=== PATIENT | female | born 1990 | race Caucasian/White ===

== ENCOUNTER 2016-09-19 09:53 | Inpatient (IN) ==
[2016-09-19] MEDS ORDERED: Ringers Solution, Lactated 1,000 ML ONE ×3 (10:22→13:46)
[2016-09-19] MEDS ORDERED: CeFAZolin Pre 3,000 MG/100 ML 3,000 MG/100 ML BAG IVPB ONE (10:24)
[2016-09-19] MEDS ORDERED: Metoclopramide 10 MG/2 ML VIAL IVP ONE (10:24)
[2016-09-19] MEDS ORDERED: Famotidine 20 MG/2 ML VIAL IVP ONE (10:24)
[2016-09-19] MEDS ORDERED: Ringers Solution, Lactated 1,000 ML IVC SCH ×2 (10:30→15:59)
--- NOTE | 2016-09-19 10:38 | Anesthesia Evaluation PreOp ---
Date of Encounter: 09/19/16 Time of Encounter: 10:36 - Past History Planned Operation: repeat csection Cardiac History: Denies any Significant Hx Pulmonary History: Denies Any Significant HX APPRAISER ART History: Seizures (febrile seizures as toddler) Other Medical History: Denies Any Significant HX Anesthesia History: No Prior Anesthetic Complications, Past Anesthesia ( previous csection, knee scope) : Yes (39 weeks, ) Alcohol Use: none Drug use: none Medications and Allergies Dicyclomine [Bentyl] 20 mg PO QID #20 capsule 05/11/16 [Rx] Ondansetron ODT [Zofran ODT] 4 mg SL Q6HR #12 tab.rapdis 05/11/16 [Rx] Allergies latex Allergy (Verified 04/11/16 17:36) Rash - Meds/Allergy Pre-op Review Medications Reviewed: Yes Allergies Reviewed: Yes Beta Blockers on Current Med List: No Anesthesia Exam bp 126/72 hr 87 spo2 98 Height: 70 Weight: 137 kg NPO (# of Hours): greater than 8 hours - HEENT Pupil (Motor): Pupils equal Mallampati: II Teeth: Normal Oral Opening: Greater than 3 - APPRAISER ART LOC: Oriented APPRAISER ART Motor: Normal RUE, Normal LUE, Normal RLE, Normal LLE, Normal Face APPRAISER ART Sensory: Normal: RUE, LUE, RLE, LLE, Face - Cardiac Rhythm: Regular Murmur: None JVD: No Carotid Bruit: No - Pulmonary Breath Sounds: bilateral Clear Respiratory Effort: Symmetrical Anesthesia Assess/Plan ASA Score: 2 Modified [place] Scale for Level of Consciousness: Cooperative, oriented, and tranquil Anesthetic Plan: Regional Monitoring Plan: Standard Monitors Recovery Plan: PACU
[2016-09-19 10:40] LABS: Basophils % 0.1 %; Eosinophils # 0.1 K/mcL (0.0-0.6); Hematocrit 36.1 % (35.3-44.9); Hemoglobin 11.9 g/dL (11.5-15.4); Immature Granulocytes % 0.6 % (0-4); Lymphocytes # 1.9 K/mcL (0.6-4.6); Lymphocytes % 16.9 %; Mean Corpuscular Hemoglobin 28.7 pg (28.0-33.3); Mean Corpuscular Volume 87.2 fL (83.0-100.0); Mean Platelet Volume 10.8 fL (9.4-12.4); Monocytes # 0.7 K/mcL (0.0-1.3); Monocytes % 5.7 %; Neutrophils # 8.7 K/mcL (1.6-8.9); Platelet Count 261 K/mcL (140-400); Red Blood Count 4.14 M/mcL (3.82-4.97); Red Cell Distribution Width 13.6 % (11.5-14.5); Segmented Neutrophils % 75.7 %
[2016-09-19] MEDS: Ringers Solution, Lactated 1,000 ML IVC ONE ×2 (10:53→11:17)
--- NOTE | 2016-09-19 11:17 | OB/GYN History & Physical ---
Date of Encounter: 09/19/16 Time of Encounter: 11:13 Assessment and Plan (1) Previous delivery affecting Current visit: Yes Status: Acute Admit for scheduled repeat delivery with tubal ligation. Ancef for ppx. Rubella vaccine . (2) 39 weeks gestation of Current visit: Yes Status: Acute (3) Obesity Current visit: Yes Status: Acute Qualifiers: Obesity type: due to excess calories Obesity severity: unspecified obesity severity Qualified Code(s): E66.09 - Other obesity due to excess calories (4) Rubella non-immune status, antepartum Current visit: Yes Status: Acute Vaccine (5) Late care Current visit: Yes Status: Acute (6) Positive GBS test Current visit: Yes Status: Acute (7) History of delivery, currently in third trimester Current visit: Yes Status: Acute History of Present Illness Chief complaint: repeat delivery HPI: Ms. Edward is a 26 year old female presenting at 39w2d for scheduled repeat delivery. This has been complicated by late care, previous , and delivery at 34 weeks. Today she reports feeling well without complaints. Good FM. Blood type A positive. Serologies negative. Rubella non-immune. GBS positive. Past Med Surg Social Fam HX - Past Medical History Medical history: no medical history Psychiatric history: no psych history - Past Surgical History Surgical History: - Social History Smoking Status: Never smoker Smokeless Tobacco Status: No Alcohol use: none Drug use: none - Family History Mother Name: dennis napier Age: 45 Family Member Ethnicity: Non- Living Status: Still Living Hx Family Cardiac Disorders: No Hx Family Respiratory Disorders: Yes (asthma) Hx Family Cancer: No Hx Family GI Disorders: No Hx Family Genitourinary Disorders: No Hx Family Endocrine Disorder: No Hx Family Musculoskeletal Disorders: No Hx Family Neuromuscular Disorders: No Hx Family Neurologic Disorders: No Hx Family HEENT Disorders: No Hx Family Autoimmune Disorders: No Hx Family Reproductive Disorders: No Hx Family Psychosocial Disorders: No Hx Family Medical Disorders: No Obstetrical History - Pregnancies : 2 Para: 1 Term: 0 : 1 Ab's: 0 Livin Medications and Allergies Dicyclomine [Bentyl] 20 mg PO QID #20 capsule 05/11/16 [Rx] Ondansetron ODT [Zofran ODT] 4 mg SL Q6HR #12 tab.rapdis 05/11/16 [Rx] Allergies latex Allergy (Verified 04/11/16 17:36) Rash Review of System OB All systems PM: reviewed and no additional remarkable complaints except as stated Exam - Constitutional Constitutional: well developed, well nourished, no acute distress - HEENT HEENT: Mucus Membranes Moist - Lungs Respiratory exam: CTAB - Cardiovascular Cardiovascular exam: RRR, +S1, +S2 - Abdomen Abdomen: Present: gravid, non tender - Extremities Extremities exam: pedal edema (mild edema bilaterally) - Vulva Vulva: bilateral: normal - Vagina Vagina: Present: normal moisture - Uterus Uterus exam: Present: normal size. Absent: tender - Anus/Rectum Anus/Rectum: Present: normal perianal skin Results Result Diagrams: 09/19/16 10:20 Abnormal lab results WBC 11.5 K/mcL (4.3-11.1) H 09/19/16 10:20 All other labs normal. - VTE Reasons for not Prescribing Prophylaxis: Treatment not Indicated - Low risk for VTE
[2016-09-19] MEDS ORDERED: *HR* Morphine Sulfate/PF 5 MG/10 ML AMPUL ONE (11:36)
[2016-09-19] MEDS ORDERED: *HR* FentaNYL (PF) 100 MCG/2 ML VIAL ONE (11:36)
[2016-09-19] MEDS ORDERED: *HR* Phenylephrine 10 MG/ML VIAL ONE (11:38)
[2016-09-19] MEDS ORDERED: *HR* Oxytocin 10 UNIT/ML VIAL IM ONE (11:38)
[2016-09-19] MEDS ORDERED: Ondansetron 4 MG/2 ML VIAL IVP ONE (12:17)
[2016-09-19] MEDS ORDERED: *HR* Promethazine 25 MG/ML VIAL IVP PRN (12:17)
[2016-09-19] MEDS ORDERED: *HR* HYDROmorphone (PF) 1 MG/ML SYRINGE IVP PRN (12:17)
[2016-09-19] MEDS ORDERED: *HR* Nalbuphine 20 MG/ML AMPUL IVP PRN (13:57)
[2016-09-19] MEDS ORDERED: Simethicone 80 MG TAB.CHEW PO PRN ×2 (15:59)
[2016-09-19] MEDS ORDERED: Sennosides 8.6 MG TABLET PO PRN (15:59)
[2016-09-19] MEDS ORDERED: Metoclopramide 10 MG/2 ML VIAL IVP PRN (15:59)
[2016-09-19] MEDS ORDERED: Ondansetron 4 MG/2 ML VIAL IVP PRN (15:59)
[2016-09-19] MEDS ORDERED: Oxytocin 20 units/ LR 1000 mL 20 UNIT/1,000 ML BAG IVC SCH (15:59)
[2016-09-19] MEDS ORDERED: *HR* Morphine 2 MG/ML SYRINGE IVP PRN (16:28)
--- NOTE | 2016-09-19 16:28 | Anesthesia Evaluation Post Op ---
Date of Encounter: 09/19/16 Time of Encounter: 16:27 - Vital Signs Vital Signs: Vital Signs/O2 Sat, Most Current Temp Pulse Resp BP Pulse Ox 97.4 F L 73 16 116/80 98 09/19/16 16:15 09/19/16 16:15 09/19/16 16:15 09/19/16 16:15 09/19/16 16:15 - Lungs Lungs: Clear Ascult./Percussion - Airway Airway: Non-obstructed - Cardiovascular Regular Rate - Mental Status Mental Status: Alert & Oriented, Answers Appropriately - Pain Pain Scale: 2 - Nausea Vomiting Nausea Vomiting: Not Present - Hydration Hydration: Ice chips - Discharge PostOp Status: Transfer Patient to floor
--- NOTE | 2016-09-19 17:05 | OB/GYN Procedure Note ---
Section - Date of procedure: 09/19/16 Preop diagnosis: other (Intrauterine at 39-2/7 weeks, previous section 1, desires sterilization) Post-op diagnosis: same (With uterine perforation with what appeared to be a possible placenta accreta that ruptured site) Procedure: repeat low transverse, bilateral tubal ligation, other (Excision of uterine wall defect) Surgeon: Israel Norris Estimated blood loss (cc): 700 Mechanical Repair Worker: Patrick Mccloud Anesthesia Type: Spinal section complications: none Disposition: L&D Recovery Room Specimens: Placenta ( portion of anterior uterine wall), Right tube segment, Left tube segment - Infant (s) A Infant Delivery Date: 09/19/16 Infant Delivery Time: 12:27 Presentation: vertex Position: unknown Route of delivery: other ( section) Gender: Male Pounds: 5 Ounces: 13 Gram Weight: 2.64 kg at 1 minute: 9 at 5 minutes: 9 Shoulder Dystocia: not encountered Placenta: complete extraction Cord: 3 umbilical vessels - Narrative Narrative: Patient is a 26-year-old 2 para 0101 at 39-2/7 weeks who presents to labor and delivery for repeat section. Patient had recently presented for her initial visit at approximately 34 weeks. Patient has a history of 34 week delivery with her first baby due to labor. Patient initially had an ultrasound which showed questionable dwarfism but subsequent ultrasounds revealed that out. When watching her closely due to low amniotic fluid index that was in the normal range just below normal. Patient was scheduled for repeat section she had signed tubal papers for a tubal ligation. The risks and benefit of a tubal ligation were explained to the patient with a failure rate of 3-5 per thousand with increased risk of ectopic if was to occur. Procedure:. Patient was taken the operating room where spinal anesthesia was found be adequate. She was placed in the dorsal supine position with a leftward tilt and prepped and draped in usual fashion. Timeout was then obtained. A Pfannenstiel incision was made through the old scar and the incision was carried down through the underlying tissue to the fascia was identified. The fascia was nicked in midline extended laterally with the Navarrete scissors. The superior and inferior edges of the fascia was then grasped tented up and dissected off the rectus muscles. Rectus muscles were in the midline parietal peritoneum was identified tented up and entered sharply. This was extended superiorly and inferiorly with Metzenbaum scissors. Was noted this time that the uterus is adherent to the intra-abdominal wall this was taken down with monopolar cautery. Upon entry into the abdomen it was noted patient had a large defect in the anterior wall with large amount of vascular bundles noted. With some manipulation was noted was a huge defect in the myometrium suggestive of a uterine rupture. This is location appears to be from her previous section but it was not in the lower uterine segment. The bladder peritoneum was then tented up and entered sharply extended laterally the bladder flap was created digitally. A incision was then made in the lower uterine segment and extended laterally with digital manipulation. Membranes are ruptured this time light meconium was noted. Infant's head was then delivered there was a nuchal 1 loose and reduced. The was fully delivered at this time cord was clamped and cut infant was handed off to waiting pediatric team. I attempted to remove the placenta by spontaneous delivery of the cord . Placenta was then manually removed it was noted this time she did have an anterior placenta I was able to peel it off the anterior wall without any difficulty. The uterus was exteriorized and cleaned of all clots and debris. It was noted patient had a separation with these vessels were admission approximate 7 cm across and I could see finger through the defect. The only thing was the vascular bundle and the serosal surface. I asked Dr. Mcmullen to step in to discuss what best options would be to repair this and both agreed that this possibly could be an accreta in this area would need to be wedged out. Decided at this time. Go ahead and close the lower uterine segment with a 0 Vicryl in a running locking stitch by 2 layer closure once this was closed using a scalpel in elliptical incision was made around the defect and the defect was removed with the vascular tissue. This was sent down as a separate specimen. Using 0 Vicryl the incision was then closed in a vertical incision by a 3 layer closure. We closed the endometrial layer in a running stitch followed by the general her in a similar fashion and then the serosal surface was closed using an 0 Vicryl in a baseball stitch. She continued having oozing from this area a fourth stitch was then used by a running locking stitch and finally get hemostasis under control. Pressure was applied to the area and a tubal ligation was performed. At the ampullary region of each tube a 2 cm portion of each fallopian tube was then suture ligated with oh plain 2 and the knuckle was excised. I was unable to get down to the fimbria safely and we left those in place. The uterus was returned to the abdomen the gutters were cleaned of all clots and debris and copiously irrigated. No active bleeding was noted. Barak was placed over the surface of the incisions and then Interceed was applied on top. The parietal peritoneum was then closed using a 2-0 Vicryl in a running stitch the fascia was then closed using a #1 stratafix in a running stitch subcutaneous tissue was closed using 0 chromic in a running stitch and the skin was closed using 4- 0 Vicryl in subcuticular manner. All needles lap and sponge counts were correct 3 she did receive preoperative antibiotics. A jose ramon dressing was applied and she was taken to the recovery room and will then be taken to the floor after 2 hours if stable.
[2016-09-20] MEDS: *HR* OxyCODONE/APAP 5/325 TABLET PO PRN ×3 (06:09→20:56)
[2016-09-20] MEDS: Ibuprofen 600 MG TABLET PO PRN ×2 (07:47→16:17)
[2016-09-20] MEDS: Prenatal Vit/FA 1 EACH TABLET PO SCH (07:47)
[2016-09-20 08:44] LABS: Basophils % 0.1 %; Eosinophils % 0.3 %; Hematocrit 30.6 % (35.3-44.9); Immature Granulocytes % 0.4 % (0-4); Lymphocytes # 1.2 K/mcL (0.6-4.6); Lymphocytes % 8.9 %; Mean Corpuscular HGB Conc 33.7 g/dL (31.6-35.5); Mean Corpuscular Hemoglobin 29.4 pg (28.0-33.3); Mean Corpuscular Volume 87.4 fL (83.0-100.0); Mean Platelet Volume 10.7 fL (9.4-12.4); Monocytes # 0.6 K/mcL (0.0-1.3); Monocytes % 4.4 %; Neutrophils # 11.5 K/mcL (1.6-8.9); Platelet Count 228 K/mcL (140-400); Segmented Neutrophils % 85.9 %
[2016-09-20 08:45] LABS: Hemoglobin 10.3 g/dL (11.5-15.4)
[2016-09-21] MEDS: *HR* OxyCODONE/APAP 5/325 TABLET PO PRN ×2 (01:26→08:27)
[2016-09-21] MEDS: Ibuprofen 600 MG TABLET PO PRN (05:55)
--- NOTE | 2016-09-21 07:51 | OB/GYN Progress Note ---
Date of Encounter: 09/20/16 Time of Encounter: 18:00 - Assessment and Plan (1) delivery delivered Current Visit: Yes Status: Acute Continue current care. Anticipate discharge tomorrow. Subjective - Subjective Interval history: Pt states pain is well managed on po pain medication. No complaints. Changed to bottle feeding. Patient reports: appetite normal, voiding normally, pain well controlled, ambulating normally : doing well Objective - Vital Signs Latest vital signs: Vital Signs Temp Pulse Resp BP Pulse Ox 09/20/16 21:03 98.4 F 96 16 127/78 98 09/20/16 16:14 18 09/20/16 16:05 98.6 F 98 16 125/73 99 09/20/16 08:06 98.1 F 90 18 131/79 97 09/20/16 08:00 18 Intake and Output 09/20/16 09/20/16 09/21/16 15:59 23:59 07:59 Intake Total 480 / 480 200 / 200 500 / 500 Output Total 600 / 600 900 / 900 850 / 850 Balance -120 / -120 -700 / -700 -350 / -350 Intake: Oral 480 / 480 200 / 200 500 / 500 Output: Urine 600 / 600 900 / 900 850 / 850 Other: Meal Lunch Dinner Percent of Meal Consumed 100% 100% Weight 127.6 kg Patient Weight 09/21/16 23:59 Weight 127.6 kg - Exam Lungs: bilateral: normal Chest: Normal S1, Normal S2 Extremities: Present: normal Abdomen: Present: normal appearance, soft Incision: Present: dressed (PICOT in place) Uterus: Present: firm - Labs Labs: Laboratory Results - last 24 hr 09/20/16 08:23 WBC 13.4 H RBC 3.50 L Hgb 10.3 L D Hct 30.6 L MCV 87.4 MCH 29.4 MCHC 33.7 RDW 14.0 Plt Count 228 MPV 10.7 Immature Gran % 0.4 Seg Neutrophils % 85.9 Lymphocytes % 8.9 Monocytes % 4.4 Eosinophils % 0.3 Basophils % 0.1 Neutrophils # 11.5 H Lymphocytes # 1.2 Monocytes # 0.6 Eosinophils # 0.0 Basophils # 0.0
[2016-09-21] MEDS: Prenatal Vit/FA 1 EACH TABLET PO SCH (08:27)
[2016-09-21 08:53] VITALS: BP 124/77
--- NOTE | 2016-09-21 08:58 | Discharge Summary ---
Date of Encounter: 09/21/16 Time of Encounter: 08:53 - Discharge Diagnosis (1) delivery delivered Priority: Primary Status: Acute Comments: Patient doing well post delivery day 2. Pain well controlled VSS Lochia light and without clots Passing flatus and urinating without difficulty Follow up in office in 2 weeks Discharge home today - Discharge Medications Prescriptions: OxyCODONE/APAP 5/325 [Percocet 5/325 MG] 1 each PO Q4HR PRN #30 tablet PRN Reason: Moderate pain 4-6 Docusate [Colace] 100 mg PO BID PRN #30 capsule PRN Reason: Constipation Home Medications: Dicyclomine [Bentyl] 20 mg PO QID #20 capsule 05/11/16 [Rx] Docusate [Colace] 100 mg PO BID PRN #30 capsule 09/21/16 [Rx] Ferrous Sulfate 325 mg PO DAILY tablet 09/21/16 [Rx] Ibuprofen [Motrin] 600 mg PO Q6HR PRN #60 tablet 09/21/16 [Rx] OxyCODONE/APAP 5/325 [Percocet 5/325 MG] 1 each PO Q4HR PRN #30 tablet 09/21/16 [Rx] Vit/FA 1 each PO DAILY tablet 09/21/16 [Rx] Simethicone [Gas-X] 80 mg PO TID PRN #0 tab.chew 09/21/16 [Rx] Allergies/Adverse Reactions: Allergies latex Allergy (Verified 04/11/16 17:36) Rash Data Procedures and tests throughout hospitalization: Laboratory Tests 09/19/16 09/20/16 10:20 08:23 WBC 11.5 H 13.4 H RBC 4.14 3.50 L Hgb 11.9 10.3 L D Hct 36.1 30.6 L MCV 87.2 87.4 MCH 28.7 29.4 MCHC 33.0 33.7 RDW 13.6 14.0 Plt Count 261 228 MPV 10.8 10.7 Immature Gran % 0.6 0.4 Seg Neutrophils % 75.7 85.9 Lymphocytes % 16.9 8.9 Monocytes % 5.7 4.4 Eosinophils % 1.0 0.3 Basophils % 0.1 0.1 Neutrophils # 8.7 11.5 H Lymphocytes # 1.9 1.2 Monocytes # 0.7 0.6 Eosinophils # 0.1 0.0 Basophils # 0.0 0.0 Date of admission: 09/19/16 09:53 Primary care physician: PCP NO Discharging clinician: Saumya Forrester Anticipated date of discharge: 09/21/16 - Patient Status Disposition: Home, Self-Care Condition: Good Functional capacity at discharge: independent ambulation Overall status at discharge: patient is progressing back to baseline - Discharge Instructions Follow Up With: NO,PCP [Primary Care Provider] - Israel Norris DO [Partnered Physician] - - Diet and Activity Activity: increase activity as tolerated Diet: regular diet Hospital Course Reason for admission: section Delivery: section Episiotomy: none Laceration: none Other procedures: tubal ligation complications: none Discharge diagnosis: IUP at term delivered Merlin baby: male Time Attestation: Total time spent providing and/or coordinating discharge services: Time Spent: Less than 30 minutes - VTE Reasons for not Prescribing Prophylaxis: Treatment not Indicated - Low risk for VTE Documentation of Mechanical Device: Intermittent pneumatic compression device Exam - Constitutional Vitals: Temp Pulse Resp BP Pulse Ox 98.7 F 86 20 143/80 97 09/21/16 08:33 09/21/16 08:33 09/21/16 08:33 09/21/16 08:33 09/21/16 08:33 General appearance IM: cooperative, A&O X 3, pleasant, no acute distress - Respiratory Respiratory exam: Present: CTAB - Cardiovascular Cardiovascular exam IM: Present: RRR, +S1, +S2 - GI/Abdominal GI/Abdominal exam IM: normal bowel sounds, soft Incision: normal, dry, intact (dresssing/jose ramon drain clean dry and intact) - Rectal Rectal exam: deferred - Uterine Tone: Firm Uterus Position: At Umbilicus, Midline - Extremities Exam Extremities exam IM: Present: normal capillary refill, normal inspection, radial pulses palpable and symetrical - Neurological Exam Neurological exam: alert, oriented X3
== END 2016-09-21 13:08 | disposition home or self-care (01) | DRG 765 ==
LOC: 1NENULAB 09:53 → 1NENUOBS 15:58
PROVIDERS: ADMIT Obstetrics & Gynecology; ATTEND Obstetrics & Gynecology